=== PATIENT | male | born 1960 | race Caucasian/White ===

== ENCOUNTER 2018-09-06 08:51 | Day surgery (SDC) | payer OTHER ==
[2018-09-06] MEDS ORDERED: ceFAZolin 3 GM in SODIUM CHLORIDE 0.9% 100ML 100 ML IV ONE (09:15)
[2018-09-06] MEDS ORDERED: LACTATED RINGERS 1,000 ML IV ONE (09:45)
[2018-09-06] MEDS ORDERED: EPINEPHrine 1 MG/ML AMP ONE (09:54)
[2018-09-06] MEDS ORDERED: BUPIVACAINE 0.25% PF 30 ML VIAL ONE (09:55)
--- NOTE | 2018-09-06 10:18 | ANESTHESIA ---
Pre-Anesthesia VS, & Labs - Diagnosis Right knee meniscus tear - Procedure Right knee arthroscopy Vital Signs: Temp Pulse Resp BP Pulse Ox 36.6 C 59 L 18 135/91 H 99 09/06/18 09:14 09/06/18 09:14 09/06/18 09:14 09/06/18 09:14 09/06/18 09:14 Height 5 ft 11 in Weight (kg) 136.08 kg Body Mass Index 40.6 - Lab Results Lab results reviewed: Yes Home Medications and Allergies Home Medications: Ambulatory Orders Hydrochlorothiazide 12.5 mg PO DAILY 08/28/18 Lisinopril 20 mg PO DAILY 04/11/15 Hydrochlorothiazide 12.5 mg PO DAILY 08/28/18 Allergies/Adverse Reactions: Allergies Allergy/AdvReac Type Severity Reaction Status Date / Time No Known Drug Allergies Allergy Verified 09/06/18 10:00 Anes History & Medical History - Anesthetic History Anesthesia Complications: reports: No previous complications Family history of Anesthesia Complications: Denies Family history of Malignant Hyperthermia: Denies - Medical History Cardiovascular: reports: Hypertension Pulmonary: reports: None Gastrointestinal: reports: None, GERD Urinary: reports: None, Kidney stones Neuro: reports: None Musculoskeletal: reports: Osteoarthritis, Other Endocrine/Autoimmune: reports: None Blood Disorders: reports: None Skin: reports: None Smoking Status: Never smoker Psychosocial: reports: No issues indicated - Surgical History General: Appendectomy Urologic: Ureterolithotomy (stones) Orthopedic: Other Exam General: Alert, Oriented x3 Dental: WNL Mouth Opening: Greater than 4 Fingerbreadths Neck Mobility: Normal Mallampati classification: II Thyromental Distance: greater than 6 cm Respiratory: Lungs clear Cardiovascular: Regular rate Neurological: Normal speech Mental/Cognitive Status: Alert/Oriented X3 Cognitive Status: Within normal limits Plan Anesthesia Type: General Consent for Procedure(s) Verified and Reviewed: Yes Code Status: Attempt Resuscitation ASA classification: 2-Mild systemic disease Is this case an emergency?: No
[2018-09-06] MEDS ORDERED: BUPIVACAINE 0.25% PF 30 ML VIAL SUBQ ONE ×2 (11:29)
[2018-09-06] MEDS ORDERED: ACETAMINOPHEN 1,000 MG/100 ML 100 ML IV ONE (12:43)
[2018-09-06] MEDS ORDERED: oxyCODONE 5 MG TABLET PO PRN (12:53)
[2018-09-06] MEDS ORDERED: ONDANSETRON 4 MG/2 ML VIAL IVP PRN (12:53)
--- NOTE | 2018-09-06 12:57 | OPERATIVE REPORT ---
Operative Report - General Planned Procedure: Right knee arthroscopy meniscal debridement versus repair, chondroplasty Pre-Op Diagnosis: Right knee medial meniscal radial tear Procedure Performed: Right knee arthroscopy, medial meniscal debridement, medial femoral condyle shaving chondroplasty, medial patella shaving chondroplasty Post Op Diagnosis: Right knee Medial meniscal radial tear, medial compartment chondromalacia, - Procedure Note Primary Surgeon: Leo Bell MD Secondary Surgeon: Kit Leung MD Anesthesia Technique: General LMA Estimated Blood Loss (mL): 5 - Other Other Information/Narrative: Examination under anesthesia: Extension 0, flexion 120, Edgardo 1A, pivot shift neg, stable to varus and valgus stress at 0 and 30, negative posterior drawer. Arthroscopic findings: 1. Patella and trochlea: Grade II-III changes medial patellar facet, Grade I-II changes trochlea 2. Medial compartment: Radial tear, near full-thickness, posterior horn medial meniscus. Grade II-III changes medial femoral condyle, Softening medial tibial plateau 3. Lateral compartment: Grade I changes lateral tibial plateau 4. ACL Intact, PCL intact. Implants: None Tourniquet: Right thigh 250 mmHg, approximately 34 minutes Indications for procedure: This is a 58-year-old gentleman with approximately 3.5 months of right knee pain following injury. He reports that he stepped in a hole was initially diagnosed with a knee sprain but pain persisted. X-ray and MRI are obtained which demonstrated a radial tear of the posterior horn of the medial meniscus. Patient denies prior knee pain, and reports medial sided pain worse with activity and stiffness/pain with prolonged sitting. He reports some catching popping and occasional giving way. He reports that his knee feels especially weak in the morning. He had been using oral nonsteroidals for pain control, icing and elevating. He reports a bad flare reaction to a prior steroid injection but had not undergone any physical therapy. Based on his clinical symptoms, and MRI findings, we discussed nonoperative treatment to include physical therapy, versus operative management in the form of right knee arthroscopy, with medial meniscal debridement versus repair. We also discussed the variable response of knee arthritis to arthroscopy, and the fact that arthritis mediated pain could potentially be worse following surgery. Risks of the procedure to include bleeding, infection, damage to surrounding structures, fracture, implant complications, blood clot to include (DVT and PE), risks of anesthesia, heart attack, stroke, were discussed with the patient. Questions were answered, and the patient desired to proceed with the surgery. Informed consent was signed in clinic. Procedure Details: The patient was met in the pre-operative hold area. We reviewed risks, benefits, and alternatives to surgery. Consent was reviewed. The patient verified the surgical site as the right knee, and I initialed the right knee The patient then met with anesthesia and was brought back to the operating room. The patient was placed supine on the operating table. A general anesthetic was administered and LMA was placed by the Manager Of Administration. A well-padded tourniquet was placed on the thigh. The lower extremity was then prepped and draped in the usual sterile fashion. A surgical timeout was then performed. The correct patient, the correct procedure, and the correct surgical site were confirmed by everyone in the room. Perioperative antibiotics had been administered. After surgical timeout and administration of antibiotics the Escmarch was used to exsanguinate the operative extremity and the tourniquet was raised. An 11 blade scalpel was used to make an anteromedial and anterolateral arthroscopic portal. The arthroscope was introduced into the knee and a diagnostic arthroscopy was performed with the above-stated findings. Arthroscopic biters and sucker shaver were used to debride the torn meniscal tissue and debride the meniscus back to a stable rim. The arthroscopic probe was used to ensure that the remaining meniscal tissue was stable. A limited shaving chondroplasty was performed on the medial femoral condyle, as well as on the medial facet of the patella. A limited fat pad debridement, and synovectomy was performed. The arthroscopic instruments were then removed from the knee. The portals were closed with 3-0 Monocryl. 0.25% Marcaine was injected into the periarticular soft tissues. The incisions were dressed with Xeroform gauze, 4 x 4 gauze, and ABD dressing, and secured in place using a Miles stocking. The tourniquet was lowered. The surgical drapes were removed. The patient was awoken from anesthesia, extubated, transferred to the hospital bed, and taken to the PACU for recovery in good condition. Postoperative plan: 1. Discharge home from the same day surgery facility once the patient has met discharge criteria. 2. Advance weightbearing as tolerated, range of motion as tolerated, and wean from crutches as tolerated. 3. Return to clinic in 5-14 days for wound check. 4. DVT prophylaxis will be early ambulation and a full strength enteric-coated aspirin daily for 30 days. 5. Allow advancement of activities as tolerated with full clearance for all activities anticipated in 6-8 weeks postoperatively.
[2018-09-06 13:47] VITALS: BP 129/64
== END 2018-09-06 08:52 | disposition home or self-care (01) ==
LOC: SDS 08:51
PROVIDERS: ATTEND Orthopaedic Surgery
PROC: 0SBC4ZZ Excision of Right Knee Joint, Percutaneous Endoscopic Approach (ICD-10-PCS; principal; 2018-09-06 10:00)
DX: S83.241A Other tear of medial meniscus, current injury, right knee, initial encounter (principal); M94.261 Chondromalacia, right knee; M17.11 Unilateral primary osteoarthritis, right knee; E66.01 Morbid (severe) obesity due to excess calories; G47.33 Obstructive sleep apnea (adult) (pediatric); Z79.899 Other long term (current) drug therapy; Z68.41 Body mass index [BMI] 40.0-44.9, adult; Z72.0 Tobacco use
CPT/HCPCS: 29881; J0131; J7120

== ENCOUNTER 2019-06-24 14:42 | Outpatient (CLI) | payer OTHER ==
[2019-06-24 21:14] VITALS: BP 155/90
--- NOTE | 2019-06-24 21:14 | SLEEP CARE CONSULTATION ---
Information from patient questionnaire entered by Marce Romero. I have reviewed and concur with the information entered by Marce Romero. This document represents the service I personally performed and the decisions made by me, Rick Parekh MD, [facility]. History of Present Illness Reason for Visit: New patient Chief Complaint: reports: Insomnia, Unrefreshed sleep, Snoring, Excessive daytime sleepiness, Observed pauses in breathing, Fatigue, Frequent awakenings at night Usual bedtime: [id number] Time it takes to fall asleep: 15-30 MINUTES Snores at night: Yes Observed to quit breathing while asleep: Yes Sleeps alone due to snoring: No Number of times waking at night: 3-4 Reasons for waking at night: reports: Choking, Snoring, Gasping for air, Bathroom Toss, Turn, or Twitch while sleeping: Yes Recalls having dreams: No Usually gets out of bed at: 0415 Feels refreshed in the morning: No Morning headache: No Sleepy or fatigued during the day: Yes Ever fallen asleep while driving: No Takes day naps: No Dreams during day naps: No Prior sleep studies: No Additional HPI information: I had the pleasure of seeing Mr. Webster today regarding the possibility of him having a sleep disorder. As you know, he is a 59 year old gentleman who co mplains of insomnia, loud snore, observed apneas, unrefreshed sleep, persistent fatigue, and excessive daytime sleepiness. He has had the symptoms for a long time. His can still sleep in the same bed. He can recall waking up on the average of 3 - 4 times during the night. Most of the time he wakes up because of having to use the bathroom. He has awakened occasionally because of his own snoring, choking, and having to gasp for air. There is a lot of tossing and turning in his sleep. In the morning he usually gets up out of the bed around 4:15 a.m. not feeling refreshed nor rested. During the day he complains of feeling sleepy and fatigued. His score on [place] Sleepiness Scale is 16 out of 24. 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 Patient is and lives in [place]. Have you smoked in the past 12 months: No Alcohol use: Yes Alcohol amount and frequency: 1 DRINK/WEEK Caffeine use: Yes Caffeine amount and frequency: 3-4 CUPS Family History Family history of sleep disordered breathing: No Allergies and Home Medications Drug allergies reviewed: Yes Home medication list reviewed: Yes Review of Systems Cardiovascular: reports: high blood pressure, leg or foot swelling, have to sleep sitting up Respiratory: denies: shortness of breath, wheeze, sputum production, chronic cough, other Gastrointestinal: denies: heartburn, difficulty swallowing, nausea, vomitting, diarrhea, abdominal pain, other Urinary: reports: frequency Neurological: denies: headaches, seizure, head trauma, disorientation, speech dysfunction, gait or balance problems, fainting or unconsciousness, other Psychiatric: denies: Attention Deficit Hyperactivity, anxiety, depression, mood disorder, claustrophobia, other Ear/Nose/Throat: reports: dry mouth/throat Endocrine: reports: history of goiter, sluggishness, excessive thirst, increased urination Musculoskeletal: reports: joint pain, back pain, joint swelling Physical Exam Vital signs obtained and entered by: Dr. Parekh Blood Pressure: 155/90 Cuff size: long Heart Rate: 67 O2 Saturation: 97 Height: 5 ft 11 in Weight (kg): 295 lb Body Mass Index: 41.1 BMI Classification: Class 3 Neck circumference: 19.5 Mood/affect: normal HEENT: No craniofacial malformation Nostrils: patent to airflow Turbinates: normal Septum: midline Mouth and throat: narrow oropharynx Soft palate: long Hard palate: normal Uvula: normal Uvula visualization: 25% Mallampati Class III Tongue: enlarged in size with teeth smith on lateral edges Tonsils: small Chin and jaw: normal size and position Neck: normal w/o lymphadenopathy or thyromegaly Heart: regular rate and rhythm Lungs: clear bilaterally Abdomen: soft Extremities: 1+ edema Neurologic: intact Impression and Plan IMPRESSION: 1. Obstructive Sleep Apnea-Hypopnea Syndrome, most likely severe, as suggested by history of loud and irregular snoring, observed cessation of breath while asleep, frequent awakenings during the night, nocturnal choking, unrefreshed sleep, and daytime hypersomnolence. Narrow oropharynx and obesity are common pre disposing factors for obstructive sleep apnea-hypopnea syndrome. Untreated obstructive sleep apnea can also cause hypertension. Pathophysiology of sleep- disordered breathing was discussed. I recommend proceeding to polysomnography to confirm the diagnosis and to assess severity. If he has significant sleep disordered breathing, a manual CPAP titration study will also be performed to find the optimal treatment pressure. I informed the patient of what the sleep studies involve and after some discussion, he agreed to proceed. Plan: 1. Schedule polysomnography + manual CPAP titration study and return in 1 to 2 weeks after the study to discuss result and initiate therapy. 2. Avoid long distance driving or when feeling sleepy. 3. Avoid alcohol, sedative and muscle relaxant around bedtime. 4. Attempt to lose weight. I spent 100% of this 15 minute visit face to face with the patient with greater than 50% of this was spent time counseling the patient and coordination of care.
== END 2019-06-24 14:43 | disposition home or self-care (01) ==
LOC: SC 14:42
PROVIDERS: ATTEND Internal Medicine Pulmonary Disease
DX: R06.83 Snoring (principal); R06.81 Apnea, not elsewhere classified; G47.8 Other sleep disorders; G47.10 Hypersomnia, unspecified
CPT/HCPCS: 99203; 99212

== ENCOUNTER 2019-07-26 20:13 | Outpatient (CLI) | payer OTHER | END 2019-07-26 20:14 | disposition home or self-care (01) | LOC: SC 20:13 | PROVIDERS: ATTEND Internal Medicine Pulmonary Disease | DX: G47.33 Obstructive sleep apnea (adult) (pediatric) (principal); E66.9 Obesity, unspecified; Z68.41 Body mass index [BMI] 40.0-44.9, adult | CPT/HCPCS: 95810 ==

== ENCOUNTER 2019-08-11 15:34 | Outpatient (CLI) | payer OTHER ==
[2019-08-11 16:40] VITALS: BP 160/90
--- NOTE | 2019-08-11 16:40 | SLEEP CARE CONSULTATION ---
Information from patient questionnaire entered by Jade Galvan. I have reviewed and concur with the information entered by Jade Galvan. This document represents the service I personally performed and the decisions made by me, Carmenza Cunningham, RN, MSN, [employer]. History of Present Illness Accompanied by: Spouse Initial [place] Sleepiness Scale score: 16 Current [place] Sleepiness Scale score: 19 Additional HPI information: CB ALTAMIRANO returns with spouse for follow up of the recently performed polysomnography and informed of the findings. I explained the pathophysiology behind obstructive sleep apnea. We then spent quite a bit of time discussing different treatment options. For mild obstructive sleep apnea, surgery and oral appliance are alternatives to nasal CPAP therapy but in moderate or severe cases, nasal CPAP is the most effective and reliable treatment. I reviewed the impact of weight changes on sleep apnea and strongly recommended losing weight. After some discussion, the patient opted to go with the nasal CPAP therapy. Nasal autoCPAP set at 5-18 cmH20 will be ordered with rationale explained. A manual titration study will also be ordered to determine optimal treatment mode due to his obesity and moderate hypoxia. I explained how CPAP machine works with sample devices Respironics Dreamstation and Inxero [id number] and what to expect when using the machine. Using CPAP every night in order to get used to it was emphasized. Patient advised to put CPAP mask on before getting into bed so as not to fall asleep without CPAP. To assist acclimation to CPAP use, it could also be used for a short time during day while reading or watching TV. The patient was instructed to call the CPAP supplier to discuss any mechanical problem that may occur. If the mask given is uncomfortable or is difficult to keep on through the night even with adjustment, contact the CPAP supplier as many will replace with another mask style if notified before 30 days. If snoring or perceives is not getting enough air or too much air from the machine, notify this office. [facility] patient education PAP tips reviewed and given to patient. He chose the Dreamstation. Patient counseled not drink alcohol less than 4 hours before bedtime as it can increase snoring and apnea. Patient was cautioned about risks of drowsy driving until sleepiness symptoms resolve. Patient has drowsiness with long distances. [facility] patient education on snoring and sleep apnea given and reviewed. Sleep Study - Polysomnography Polysomnography findings: The quality of the study is good. The patient had slightly reduced sleep efficiency due to frequent awakenings throughout the night. The sleep architecture was abnormal for sleep fragmentation and reduced amount of time spent in slow wave sleep (N3). Respiratory monitoring showed very severe obstructive sleep apneahypopnea (AHI = 71.3) associated with frequent arousals, oxyhemoglobin desaturation and moderate hypoxia (levi oxygen saturation of 79%). Baseline oxygen saturation was normal. The respirato ry events occurred independently of sleep stage and body position (supine AHI = 80.7; non-supine = 66.83). Snore was loud in intensity. There was no significant periodic leg movement of sleep. Cardiac rhythm was normal sinus rhythm frequent premature atrial contractions and occasional premature ventricular contractions. No abnormal behavior (parasomnia) observed during the night. Allergies and Home Medications Known drug allergies: No Home medication list reviewed: Yes Allergy and home medication list: lisinopril 20mg / hydrochlorthiazide 12.5mg daily Tramadol every 6 hours prn Muscle every 6 hours prn Review of Systems Review of systems same as previous: Yes Physical Exam Blood Pressure: 160/90 Heart Rate: 74 O2 Saturation: 96 Height: 5 ft 11 in (stated) Weight: 320 lb 9.6 oz Body Mass Index: 44.6 BMI Classification: Obesity Class 3 Impression and Plan 1. Obstructive Sleep Apnea-Hypopnea Syndrome, very severe, with lowest oxygen saturation of 79%. Obviously this is the cause of the patients symptoms of unrefreshed sleep, and excessive daytime sleepiness. Positive pressure therapy could benefit his hypertension and ability to lose weight. Untreated apnea can be a cause of essential hypertension and sleep fragmentation can cause disregulation of the apetite hormones leptin and gruelin. Patient has morbid obesity and reports struggle to lose weight. As mentioned above, the patient will be started on nasal autoCPAP therapy with pressure set at 5-18 cmH2O. A manual titration study will also be completed to find optimal treatment mode and pressure due to morbid obesity and moderate hypoxia. Compliance guidelines also reviewed. A copy of compliance guidelines will be given for reference at check out. Because the apnea is a little more severe supine, I instructed to avoid sleeping supine using pillow positioning until able to start CPAP use and elevated the head of bed to reduce some apnea risk. An urgent set up for CPAP was ordered. 2. Arrhythmia, frequent PACs and occasional PVCs. I explained how untreated apnea can increase risk of arrhythmia. He is unaware of any irregular heart rate. Patient advised to follow up with PCP for further evaluation such as a EKG / Holter monitor. * * Nasal auto CPAP therapy, pressure at 5-18 cm H2O. * Attempt to lose weight. * Avoid alcohol consumption near bedtime. * Avoid supine sleep and elevate head of bed until using CPAP. * The patient is again cautioned about driving until sleepiness completely resolves. * Follow up with PCP for further evaluation of arrhythmia. * Return one month after CPAP obtained. I will assess response to therapy and compliance at that time. I spent 100% of this 40 minute visit face to face with the patient with greater than 50% of this was spent time counseling the patient and coordination of care.
== END 2019-08-11 15:35 | disposition home or self-care (01) ==
LOC: SC 15:34
PROVIDERS: ATTEND Nurse Practitioner Family
DX: G47.33 Obstructive sleep apnea (adult) (pediatric) (principal); E66.9 Obesity, unspecified; Z68.41 Body mass index [BMI] 40.0-44.9, adult
CPT/HCPCS: 99212; 99215

== ENCOUNTER 2019-12-23 12:54 | Outpatient (CLI) | payer OTHER ==
--- NOTE | 2019-12-23 13:14 | SLEEP CARE CONSULTATION ---
Information from patient questionnaire entered by Marce Romero. I have reviewed and concur with the information entered by Marce Romero. This document represents the service I personally performed and the decisions made by me, Rick Parekh MD, [facility]. History of Present Illness Previous diagnosis: Very Severe, Obstructive Sleep Apnea-Hypopnea Syndrome AHI: 71.3 Reason for follow up: first compliance Equipment type: CPAP Equipment obtained from: [facility] Mask style: Nasal Prior sleep studies: Yes HPI additional information: HPI: Mr. Webster returned today for follow up of nasal CPAP therapy. He was diagnosed to have very severe obstructive sleep apnea-hypopnea syndrome. [facility] is his durable medical supplier. The patient wears a nasal mask. He reports using the device nightly and all through the night. The compliance report shows usage in 30 nights out of the past 30 nights, averaging 5.6 hours a night. The > 4 hour compliance rate for the past 30 days is 100%. He complained of no particular problem with the device such as soreness on the face, dry nose, epistaxis, nasal congestion or headache. He thinks that the pressure is comfortable. On the CPAP therapy he notices improvement in his sleep quality, and that he wakes up feeling fresher in the morning and more awake/alert during the day. His notices no snore at all. [place] Sleepiness Scale score is 7. The average residual AHI is 4.5; and average time in large leak per day is 2 minutes. The 90th percentile pressure is 12.3 cmH2O. CPAP Compliance Data - Data Reviewed with Patient Average duration of nightly device use: 5H 33M Compliance rate %: 83.3 Current pressure setting (cmH2O): 5-18 Humidity settin Heated hose settin Average residual AHI: 4.5 Average large leak: 1m 56s Subjective Current pressure setting perceived as: comfortable Initial [place] Sleepiness Scale score: 16 Current [place] Sleepiness Scale score: 7 Allergies and Home Medications Drug allergies reviewed: Yes (NKDA) Home medication list reviewed: Yes (lisinopril and HCTZ) Review of Systems Review of systems same as previous: Yes Physical Exam Height: 5 ft 11 in (stated) Weight: 326 lb Weight change since last visit: -4 lbs Body Mass Index: 45.4 BMI Classification: Morbidly Obese Impression and Plan IMPRESSION: 1. Obstructive Sleep Apnea-Hypopnea Syndrome, very severe, with the patient doing extremely well on nasal CPAP therapy. He has excellent compliance and significant clinical improvement. The current pressure appears effective and comfortable. His mask fits well. Overall, he is very satisfied with treatment and plans to continue with it long-term. No adjustment is necessary today. PLAN: 1. Continue with autoCPAP set at 5 - 18 cmH2O. 2. Try to lose weight 3. Try other masks and nasal pillows. 4. Return in one year for follow up or earlier if there is any problem with the treatment. I spent 100% of this visit face to face with the patient with greater than 50% of this was spent time counseling the patient and coordination of care.
== END 2019-12-23 12:55 | disposition home or self-care (01) ==
LOC: SC 12:54
PROVIDERS: ATTEND Internal Medicine Pulmonary Disease
DX: G47.33 Obstructive sleep apnea (adult) (pediatric) (principal); E66.01 Morbid (severe) obesity due to excess calories; Z68.42 Body mass index [BMI] 45.0-49.9, adult
CPT/HCPCS: 99212; 99213